=== PATIENT | female | born 1970 | race Caucasian/White ===

== ENCOUNTER 2018-07-15 07:41 | Emergency (ER) | payer OTHER ==
[~2018-07-15] VITALS: Ht 157.5 cm; Wt 72.8 kg
[2018-07-15 07:53] VITALS: Ht 157.5 cm; Wt 72.8 kg
[2018-07-15 10:59] VITALS: BP 121/78
== END 2018-07-15 10:59 | disposition home or self-care (01) ==
LOC: ED 07:41
DX: M25.571 Pain in right ankle and joints of right foot (principal); G89.29 Other chronic pain; J45.909 Unspecified asthma, uncomplicated; J44.9 Chronic obstructive pulmonary disease, unspecified; F17.210 Nicotine dependence, cigarettes, uncomplicated; Z98.890 Other specified postprocedural states
CPT/HCPCS: 99406; Q0092

== ENCOUNTER 2018-12-23 15:41 | Emergency (ER) | payer OTHER ==
[~2018-12-23] VITALS: Ht 157.5 cm; Wt 65.8 kg
[2018-12-23 16:07] VITALS: BP 110/74; Ht 157.5 cm; Wt 65.8 kg
== END 2018-12-23 16:58 | disposition left against medical advice (07) ==
LOC: ED 15:41
DX: L02.211 Cutaneous abscess of abdominal wall (principal); J44.9 Chronic obstructive pulmonary disease, unspecified